=== PATIENT | male | born 1975 | race Hispanic/Latino ===

== ENCOUNTER 2018-03-26 21:45 | Emergency (ER) | payer BC, OTHER | END 2018-03-26 23:22 | disposition home or self-care (01) | LOC: EDH 21:45 | DX: S69.82XA Other specified injuries of left wrist, hand and finger(s), initial encounter (principal); S69.92XA Unspecified injury of left wrist, hand and finger(s), initial encounter; M25.532 Pain in left wrist; Z98.890 Other specified postprocedural states; W18.39XA Other fall on same level, initial encounter; Y93.89 Activity, other specified; Y92.098 Other place in other non-institutional residence as the place of occurrence of the external cause; Y99.8 Other external cause status | CPT/HCPCS: 73110 ==